=== PATIENT | female | born 1995 | race African-American/Black ===

== ENCOUNTER 2018-02-22 11:05 | Emergency (ER) | payer OTHER ==
[~2018-02-22] VITALS: Ht 167.6 cm; Wt 106.0 kg
[2018-02-22] MEDS ORDERED: KETOROLAC 15MG/ML VIAL IM ONE (13:30)
[2018-02-22 14:11] VITALS: BP 155/81
== END 2018-02-22 14:29 | disposition home or self-care (01) ==
LOC: ER 12:13
DX: M79.672 Pain in left foot (principal); Z88.0 Allergy status to penicillin; Z91.018 Allergy to other foods; Z98.890 Other specified postprocedural states
CPT/HCPCS: 73630; 81025; 96372; 99284; J1885; Z7610

== ENCOUNTER 2019-01-02 12:05 | Emergency (ER) | payer OTHER ==
[~2019-01-02] VITALS: Ht 160 cm; Wt 104.0 kg
[2019-01-02] MEDS ORDERED: IBUPROFEN 600MG TABLET PO ONE (13:30)
[2019-01-02 14:28] VITALS: BP 130/75
== END 2019-01-02 14:28 | disposition home or self-care (01) ==
LOC: ER 12:05
DX: R05 Cough (principal); M85.621 Other cyst of bone, right upper arm; R20.0 Anesthesia of skin; Z88.0 Allergy status to penicillin; Z91.018 Allergy to other foods
CPT/HCPCS: 71045; 82962; 99284

== ENCOUNTER 2019-09-25 14:22 | Emergency (ER) | payer OTHER ==
[~2019-09-25] VITALS: Ht 170.2 cm; Wt 97.0 kg
[2019-09-25 15:27] VITALS: BP 135/78
== END 2019-09-25 15:28 | disposition home or self-care (01) ==
LOC: ER 14:55
DX: J02.9 Acute pharyngitis, unspecified (principal); Z91.018 Allergy to other foods; Z88.0 Allergy status to penicillin
CPT/HCPCS: 99281

== ENCOUNTER 2020-07-20 15:24 | Emergency (ER) | payer OTHER ==
[~2020-07-20] VITALS: Ht 167.6 cm; Wt 104.0 kg
[2020-07-20] MEDS ORDERED: BACITRACIN ZINC OINT UDPKT TOP ONE (16:15)
[2020-07-20] MEDS ORDERED: TETANUS, DIPHTHERIA, PERTUSSIS VAC/PF 0.5ML (>7YR OLD) IM ONE (16:15)
[2020-07-20 17:08] LABS: BASOPHILS % 0.3 % (0.0-2.0); EOSINOPHILS % 0.5 % (0.0-5.0); HEMATOCRIT. 35.4 % (36.0-48.0); HEMOGLOBIN. 11.6 g/dL (12.0-16.0); LYMPHOCYTES % 24.7 % (20.0-50.0); MEAN CORPUSCULAR HEMOGLOBIN 26.6 pg (28.0-32.0); MEAN CORPUSCULAR VOLUME 81.2 fL (81.0-99.0); MEAN PLATELET VOLUME 9.9 fl (7.4-10.4); MONOCYTES % 5.2 % (2.0-8.0); NEUTROPHILS % 69.3 % (40.0-76.0); PLATELET 304 x1000/uL (130-400); RED BLOOD CELL COUNT 4.36 mill/uL (4.2-5.4); RED CELL DISTRIBUTION WIDTH 14.5 % (11.6-14.6)
[2020-07-20 17:14] LABS: CHLORIDE 106 mEq/L (98-107)
[2020-07-20 17:15] LABS: HCG SCREEN NEGATIVE
[2020-07-20 17:17] LABS: CLARITY URINE CLOUDY (CLEAR); COLOR URINE YELLOW (YELLOW); KETONES URINE NEGATIVE (NEGATIVE); LEUKOCYTE ESTERASE URINE NEGATIVE (NEGATIVE); NITRITE URINE NEGATIVE (NEGATIVE); OCCULT BLOOD URINE NEGATIVE (NEGATIVE); PROTEIN URINE NEGATIVE (NEGATIVE); SPECIFIC GRAVITY URINE 1.026 (1.005-1.030); UROBILINOGEN URINE 0.2 E.U./dL (0.2-1.0)
[2020-07-20 17:18] LABS: ETHANOL BLOOD < 10 mg/dL
[2020-07-20 17:28] LABS: METHADONE URINE SCREEN NEGATIVE (NEGATIVE); OPIATES URINE SCREEN NEGATIVE (NEGATIVE); PHENCYCLIDINE URINE SCREEN NEGATIVE (NEGATIVE)
[2020-07-20 17:29] LABS: *AMPHETAMINES SCREEN URINE NEGATIVE (NEGATIVE); *BARBITURATES SCREEN URINE NEGATIVE (NEGATIVE); *BENZODIAZEPINES SCREEN URINE NEGATIVE (NEGATIVE); *COCAINE SCREEN URINE NEGATIVE (NEGATIVE)
[2020-07-20 17:37] LABS: CANNABINOID URINE SCREEN PRESUMTIVE POSITIVE (NEGATIVE)
[2020-07-20] MEDS ORDERED: NITROFURANTOIN 100MG M/M CAPSULE PO STA (17:47)
[2020-07-20] MEDS ORDERED: TRAZODONE HCL 50MG TABLET PO STA (20:10)
[2020-07-21 18:30] VITALS: BP 125/77
[2020-07-21] MEDS ORDERED: TRAZ-251 MT (18:48)
[2020-07-21] MEDS ORDERED: SERT50TA12 MT (18:48)
[2020-07-21] MEDS ORDERED: SERTRALINE HCL 50MG TABLET PO SCH (20:15)
== END 2020-07-21 20:01 | disposition home or self-care (01) ==
LOC: ER 15:24
DX: S61.512A Laceration without foreign body of left wrist, initial encounter (principal); F32.9 Major depressive disorder, single episode, unspecified; R45.851 Suicidal ideations; Z03.818 Encounter for observation for suspected exposure to other biological agents ruled out; Z88.0 Allergy status to penicillin; Z91.018 Allergy to other foods; X78.9XXA Intentional self-harm by unspecified sharp object, initial encounter; Y93.89 Activity, other specified; Y92.018 Other place in single-family (private) house as the place of occurrence of the external cause
CPT/HCPCS: 36415; 80053; 80305; 80307; 80320; 80329; 81003; 81025; 84703; 85025; 90471; 90715; 93005; 99285; C9803; U0003; G0480

== ENCOUNTER 2020-09-12 10:04 | Emergency (ER) | payer OTHER ==
[~2020-09-12] VITALS: Ht 167.6 cm; Wt 105.0 kg
[~2020-09-12 10:04] MED LIST: SERT-422 MT; TRAZ-251 MT
[2020-09-12] MEDS ORDERED: IBUPROFEN 600MG TABLET PO ONE (11:00)
[2020-09-12] MEDS ORDERED: AZIT500T2 PO (11:14)
[2020-09-12] MEDS ORDERED: CIPDEX RIGHT EAR (11:14)
[2020-09-12] MEDS ORDERED: IBUP-2029 MT (11:14)
[2020-09-12 11:33] VITALS: BP 147/78
== END 2020-09-12 11:34 | disposition home or self-care (01) ==
LOC: ER 10:04
DX: H66.91 Otitis media, unspecified, right ear (principal); Z88.0 Allergy status to penicillin; Z91.018 Allergy to other foods; Z79.899 Other long term (current) drug therapy
CPT/HCPCS: 99283

== ENCOUNTER 2020-12-19 08:31 | Emergency (ER) | payer OTHER ==
[~2020-12-19] VITALS: Ht 167.6 cm; Wt 104.0 kg
[~2020-12-19 08:31] MED LIST changes: +AZIT500T2 PO; +CIPDEX RIGHT EAR; +IBUP-2029 MT
[2020-12-19] MEDS ORDERED: ONDANSETRON 4MG ODT PO ONE (09:15)
[2020-12-19] MEDS ORDERED: ALBU6.7H9 INH (12:29)
[2020-12-19] MEDS ORDERED: P20 MT (12:29)
[2020-12-19 12:38] VITALS: BP 120/60
[2020-12-22] MEDS ORDERED: AZIT250T12 MT (21:35)
== END 2020-12-19 15:09 | disposition home or self-care (01) ==
LOC: ER 08:31
DX: J40 Bronchitis, not specified as acute or chronic (principal); H61.21 Impacted cerumen, right ear; F17.290 Nicotine dependence, other tobacco product, uncomplicated; Z88.0 Allergy status to penicillin; Z91.018 Allergy to other foods; Z79.899 Other long term (current) drug therapy
CPT/HCPCS: 69209; 71045; 81025; 99283; 99406; Q0162; Z7610

== ENCOUNTER 2021-03-15 12:33 | Emergency (ER) | payer OTHER ==
[~2021-03-15] VITALS: Ht 167.6 cm; Wt 103.0 kg
[~2021-03-15 12:33] MED LIST changes: +ALBU6.7H9 INH; +AZIT250T12 MT; +P20 MT
[2021-03-15] MEDS ORDERED: IBUP-2029 PO (14:56)
[2021-03-15] MEDS ORDERED: AZIT250T12 MT (14:56)
[2021-03-15] MEDS ORDERED: CLIN300C12 PO (15:20)
[2021-03-15 15:27] VITALS: BP 134/88
== END 2021-03-15 15:28 | disposition home or self-care (01) ==
LOC: ER 12:33
DX: J02.9 Acute pharyngitis, unspecified (principal); Z88.0 Allergy status to penicillin; Z91.018 Allergy to other foods
CPT/HCPCS: 87070; 87430; 99283; Z7610

== ENCOUNTER 2021-12-26 00:06 | Emergency (ER) | payer OTHER ==
[~2021-12-26] VITALS: Ht 167.6 cm; Wt 99.4 kg
[~2021-12-26 00:06] MED LIST changes: +CLIN-194 PO; +IBUP-2029 PO
[2021-12-26] MEDS ORDERED: ONDANSETRON 4MG ODT PO ONE (02:45)
[2021-12-26 03:22] LABS: CLARITY URINE CLOUDY (CLEAR); COLOR URINE YELLOW (YELLOW); KETONES URINE NEGATIVE (NEGATIVE); LEUKOCYTE ESTERASE URINE TRACE (NEGATIVE); NITRITE URINE NEGATIVE (NEGATIVE); OCCULT BLOOD URINE NEGATIVE (NEGATIVE); PH URINE 5.5 (4.5-8.0); PROTEIN URINE NEGATIVE (NEGATIVE); SPECIFIC GRAVITY URINE 1.024 (1.005-1.030); UROBILINOGEN URINE 0.2 E.U./dL (0.2-1.0)
[2021-12-26 03:37] VITALS: BP 115/71
[2021-12-26 03:40] LABS: *AMPHETAMINES SCREEN URINE NEGATIVE (NEGATIVE); *BARBITURATES SCREEN URINE NEGATIVE (NEGATIVE); *BENZODIAZEPINES SCREEN URINE NEGATIVE (NEGATIVE); *COCAINE SCREEN URINE NEGATIVE (NEGATIVE); METHADONE URINE SCREEN NEGATIVE (NEGATIVE); OPIATES URINE SCREEN NEGATIVE (NEGATIVE); PHENCYCLIDINE URINE SCREEN NEGATIVE (NEGATIVE)
[2021-12-26 03:41] LABS: CANNABINOID URINE SCREEN PRESUMTIVE POSITIVE (NEGATIVE)
[2021-12-26 03:55] LABS: BASOPHILS % 0.6 % (0.0-2.0); HEMATOCRIT. 35.7 % (36.0-48.0); HEMOGLOBIN. 11.8 g/dL (12.0-16.0); LYMPHOCYTES % 54.2 % (20.0-50.0); MEAN CORPUSCULAR HEMOGLOBIN 27.6 pg (28.0-32.0); MEAN CORPUSCULAR VOLUME 83.8 fL (81.0-99.0); MEAN PLATELET VOLUME 10.7 fl (7.4-10.4); MONOCYTES % 7.6 % (2.0-8.0); NEUTROPHILS % 36.6 % (40.0-76.0); PLATELET 259 x1000/uL (130-400); RED BLOOD CELL COUNT 4.26 mill/uL (4.2-5.4); RED CELL DISTRIBUTION WIDTH 14.4 % (11.6-14.6)
[2021-12-26 04:05] LABS: CHLORIDE 105 mEq/L (98-107)
[2021-12-26 04:15] LABS: ETHANOL BLOOD < 10 mg/dL
== END 2021-12-26 05:21 | disposition home or self-care (01) ==
LOC: ER 00:46
DX: R10.9 Unspecified abdominal pain (principal); F12.10 Cannabis abuse, uncomplicated; R19.7 Diarrhea, unspecified; R11.2 Nausea with vomiting, unspecified; F17.210 Nicotine dependence, cigarettes, uncomplicated; Z71.6 Tobacco abuse counseling; Z91.018 Allergy to other foods; Z88.0 Allergy status to penicillin
CPT/HCPCS: 36415; 80053; 80305; 80320; 81003; 81025; 83690; 85025; 99283; 99406; Q0162; G0480

== ENCOUNTER 2022-05-02 17:22 | Emergency (ER) | payer OTHER ==
[~2022-05-02] VITALS: Ht 165.1 cm; Wt 100.0 kg
[~2022-05-02 17:22] MED LIST changes: +ALBU6.7H3 INH; -ALBU6.7H9 INH
[2022-05-02 18:36] VITALS: BP 137/75
== END 2022-05-02 22:30 | disposition left against medical advice (07) ==
LOC: ER 17:22
DX: Z53.21 Procedure and treatment not carried out due to patient leaving prior to being seen by health care provider (principal)